=== PATIENT | female | born 1985 | race Caucasian/White ===

== ENCOUNTER → 2025-01-16 10:24 | Outpatient (CLI) | payer OTHER, SELFPAY ==
--- NOTE | 2025-01-16 10:29 | DI.RAD.S_ITS ---
PROCEDURE: XR SHOULDER RT MIN 2V INDICATIONS: Chronic right shoulder pain TECHNIQUE: 3 views of the shoulder were acquired. COMPARISON: None. FINDINGS: Bones: No fractures or dislocations. No suspicious bony lesions. Visualized ribs appear intact. Soft tissues: No suspicious soft tissue calcifications. Supraspinatus calcific tendinopathy. IMPRESSION: Right supraspinatus calcific tendinopathy. This can be associated with shoulder pain. No acute osseous abnormality. Dictated by: Rex Jacobsen M.D. on 01/16/2025 at 10:57 Approved by: Rex Jacobsen M.D. on 01/16/2025 at 11:00
== END ==
PROVIDERS: PCP Student in an Organized Health Care Education/Training Program; Referring Provider Chiropractor; Visit Provider Chiropractor
DX: S43.401A Unspecified sprain of right shoulder joint, initial encounter (principal); X58.XXXA Exposure to other specified factors, initial encounter
CPT/HCPCS: 73030

== ENCOUNTER → 2025-02-07 13:07 | Outpatient (CLI) | payer OTHER, SELFPAY ==
[2025-02-07 14:54] LABS: Hemoglobin A1C% w Est Avg Glu 5.2 % (4.0-6.0)
[2025-02-07 15:18] LABS: Free T3, Triiodothyronine Free 4.27 pg/mL (2.77-5.27); Free T4, Direct Thyroxine 1.70 ng/dL (0.78-2.19)
[2025-02-07 15:23] LABS: Vitamin D 25 Hydroxy (D3) 45.7 ng/mL (30.0-100.0)
[2025-02-07 15:32] LABS: Thyroid Stimulating Hormone 0.124 uIU/mL (0.47-4.68)
== END ==
PROVIDERS: PCP Student in an Organized Health Care Education/Training Program; Referring Provider Student in an Organized Health Care Education/Training Program; Visit Provider Student in an Organized Health Care Education/Training Program
DX: E28.2 Polycystic ovarian syndrome (principal); Z86.39 Personal history of other endocrine, nutritional and metabolic disease
CPT/HCPCS: 36415; 82306; 83036; 84403; 84439; 84443; 84481

== ENCOUNTER → 2025-02-16 10:11 | Outpatient (CLI) | payer OTHER, SELFPAY ==
--- NOTE | 2025-02-16 10:12 | DI.MG.S_ITS ---
US breast LT limited, MM diagnostic mammo BI: 02/16/2025 BI-RADS: 2 CLINICAL: 39-year old female for bilateral diagnostic mammogram and left diagnostic breast ultrasound. Tyrer-Cuzick lifetime risk of 12.0%. No personal or first- degree family history of breast cancer. The patient reports a palpable abnormality (1 year) in the left breast. PRIOR EXAMS No prior examinations available. MAMMOGRAPHY TECHNIQUE: 2D and 3D (tomosynthesis) digital mammographic views obtained, with additional images as needed for full coverage. Current study was also evaluated with a Computer Aided Detection (CAD) system. ULTRASOUND TECHNIQUE Real-time sanon scale and color doppler imaging of the area of clinical interest was performed with image documentation. TARGETED Left Breast Ultrasound: Real-time ultrasound exam was performed focused to area of clinical and/or imaging concern. DENSITY C. The breasts are heterogeneously dense, which may obscure small masses. MAMMOGRAPHY FINDINGS Right: No suspicious mass, asymmetry, microcalcification, or other abnormality seen. Left (finding-1): Inner Central, Middle depth: A skin marker was placed in the area of concern, and no mammographic abnormalities are identified or to account for concern by the patient of a palpable lump. No suspicious mass, asymmetry, microcalcification, or other abnormality seen. ULTRASOUND FINDINGS Left: Inner at 9:00, 10 cm from nipple, Superficial Depth, measuring 0.5 x 0.4 x 0.2 cm: There is an oval, circumscribed, hyperechoic mass. Doppler shows no vascularity. This likely represents a benign lipoma. This is an incidental finding. Left (finding-1): Inner at 9:00, 8 cm from nipple: Underlying the surface marker, there is no sonographic abnormality to account for concern by the patient of a palpable lump. IMPRESSION: Right * No evidence of malignancy. Left * No evidence of malignancy with benign findings. RECOMMENDATIONS Left * Clinical follow-up is recommended, and further management of palpable abnormalities or other focal signs or symptoms should be based on the results of clinical evaluation. If palpable abnormality or other concerning symptom persists or progresses, further clinical evaluation should be considered. Bilateral * Annual screening mammography beginning at age 40. COMMENTS: Findings and recommendations were conveyed to the patient during today's evaluation. OVERALL ASSESSMENT CATEGORY BI-RADS-2: Benign. The [employer] recommends annual screening mammography beginning at age 40 for women with average risk of breast cancer. ELECTRONICALLY SIGNED: Beverley Luu M.D. on 02/16/2025 at 12:25:18 PM PT Interpreting Station ID: [id number]
== END ==
LOC: MAMMO 10:12
PROVIDERS: PCP Student in an Organized Health Care Education/Training Program; Referring Provider Student in an Organized Health Care Education/Training Program; Visit Provider Student in an Organized Health Care Education/Training Program
DX: N63.22 Unspecified lump in the left breast, upper inner quadrant (principal); R92.333 Mammographic heterogeneous density, bilateral breasts
CPT/HCPCS: 76642; 77066; G0279

== ENCOUNTER → 2025-02-23 09:20 | Outpatient (CLI) | payer OTHER, SELFPAY ==
--- NOTE | 2025-02-23 09:21 | DI.MRI.S_ITS ---
PROCEDURE: MR SHOULDER RT WO CON INDICATIONS: Shoulder pain TECHNIQUE: Noncontrast oblique coronal T2 fast spin echo with fat saturation, oblique sagittal T1 spin echo and T2 fast spin echo with fat saturation, axial T1 spin echo and T2 fast spin echo with fat saturation through the shoulder. COMPARISON: [facility], CR, XR SHOULDER RT 2+ VIEWS, 01/16/2025, 9:37. FINDINGS: Image quality: Excellent. Rotator cuff: Low to moderate grade bursal surface partial-thickness tear involving distal supraspinatus at its insertion on humeral head extending to musculotendinous junction. Calcification involving anterior to mid fibers of distal supraspinatus at its insertion on humeral head is also noted suggestive of hydroxyapatite deposition disease. Distal infraspinatus and subscapularis tendons are intact. No full-thickness rotator cuff tendon rupture. Sagittal images demonstrate no significant rotator cuff muscle atrophy. Bones and bursae: No bone marrow contusions or fractures. Mild acromioclavicular joint osteoarthritic changes are seen with joint space narrowing and small downward osteophyte formation depressing on musculotendinous junction of supraspinatus. Type 2 acromion without an os acromiale. small amount of subacromial subdeltoid bursal fluid, no loose bodies. Capsule and soft tissues: Labrum is grossly intact. The long head of the biceps tendon demonstrates normal location and morphology. The rotator interval appears normal, without fibrosis. The coracohumeral ligament is normal in thickness. IMPRESSION: 1. Low to moderate grade bursal surface partial thickness tear involving distal supraspinatus extending to musculotendinous junction. Suggestion of calcific tendinitis involving distal supraspinatus anterior to mid fibers at its insertion on humeral head. No full-thickness rotator cuff tendon rupture. 2. Mild acromioclavicular joint osteoarthritis. No fracture or dislocation. Small amount of subacromial subdeltoid bursal fluid, no loose bodies. 3. No evidence of focal labral tear. Dictated by: Jeff Li M.D. on 02/23/2025 at 12:55 Approved by: Jeff Li M.D. on 02/23/2025 at 12:58
== END ==
LOC: MRI 09:21
PROVIDERS: PCP Student in an Organized Health Care Education/Training Program; Referring Provider Student in an Organized Health Care Education/Training Program; Visit Provider Student in an Organized Health Care Education/Training Program
DX: M75.111 Incomplete rotator cuff tear or rupture of right shoulder, not specified as traumatic (principal); M19.011 Primary osteoarthritis, right shoulder; M25.519 Pain in unspecified shoulder
CPT/HCPCS: 73221

== ENCOUNTER → 2025-03-13 10:58 | Outpatient (CLI) | payer OTHER, SELFPAY ==
[2025-03-13 11:48] LABS: Add Manual Diff / Slide Review NO; Hematocrit 42.4 % (36-46); Hemoglobin 14.4 g/dL (12.0-16.0); Lymphocytes Absolute Auto 2000 /uL (1100-4500); Mean Corpuscular HGB Conc 33.8 % (30-36); Mean Corpuscular Hemoglobin 29.7 PG (26-34); Mean Corpuscular Volume 87.6 fL (80-100); Platelet Count 357 X10^3/uL (150-400)
[2025-03-13 12:15] LABS: Alanine Aminotransferase 17 IU/L (<35); Albumin 4.5 g/dL (3.5-5.0); Albumin Globulin Ratio 1.7 (1.0-2.8); Alkaline Phosphatase 71 U/L (38-126); Blood Urea Nitrogen 14 mg/dL (7-17); Calcium 9.5 mg/dL (8.4-10.2); Carbon Dioxide 25 mmol/L (22-32); Chloride 103 mmol/L (98-107); Estimated Glomerular Filt Rate > 60 mL/min (>60); Globulin 2.7 g/dL (1.7-4.1); Glucose 99 mg/dL (70-99); HEMOLYSIS < 15 (0-50); Iron 74 ug/dL (37-170); Potassium 4.3 mmol/L (3.4-5.1); Sodium 140 mmol/L (137-145); Total Protein 7.2 g/dL (6.3-8.2)
[2025-03-13 12:26] LABS: Percent Iron Saturation 22 % (15-50); Total Iron Binding Capacity 329 ug/dL (265-497); Transferrin 287 mg/dL (206-381)
[2025-03-13 12:29] LABS: Follicle Stimulating Hormone 5.08 mIU/mL
[2025-03-13 12:47] LABS: Ferritin 70 ng/mL (6-137)
== END ==
PROVIDERS: PCP Student in an Organized Health Care Education/Training Program; Referring Provider Student in an Organized Health Care Education/Training Program; Visit Provider Student in an Organized Health Care Education/Training Program
DX: N96 Recurrent pregnancy loss (principal)
CPT/HCPCS: 36415; 80053; 82672; 82728; 83001; 83540; 83550; 85025